=== PATIENT | male | born 1935 | race Caucasian/White ===

== ENCOUNTER 2021-12-27 15:00 | Inpatient (IN) | payer MEDICARE, OTHER ==
[~2021-12-27] VITALS: Ht 177.8 cm; Wt 68.0 kg
[~2021-12-27 15:00] MED LIST: ASPIR 8181 MG PO; CARBIDOPA-LEVO1 EAC7 PO; CEFUROXIME500 MG PO; COMTAN200 MG PO; DIABETA 2.5 MG2.5 MG PO; DONEPEZIL HCL10 MG PO; DONEPEZIL HCL23 MG PO; FEOSOL325 MG PO; FOLBIC TABLET1 EACH PO; GLUCERNA/RESOURC1 EA PO; LIPITOR TAB 2020 MG PO; MACROBID 100 M100 MG PO; METOPROLOL TART25 MG PO; MIDODRINE HCL10 MG PO; NUPLAZID PO; OMNICEF 300 MG300 MG PO; QUETIAPINE FUMA50 MG PO; SENOKOT-S TABL1 EACH PO; SEROQUEL50 MG PO; SYNTHROID25 MCG PO; VALTREX1000 MG PO; VITAMIN B-1000 MCG/M IM; ZOVIRAX 800 MG800 MG PO
[2021-12-27 18:02] LABS: HEMOGLOBIN 10.8 gm/dl (14.0-17.5); RED BLOOD COUNT 3.29 M/UL (4.20-5.50); WHITE BLOOD COUNT 18.6 K/UL (4.5-11.0)
[2021-12-28 06:24] LABS: HEMOGLOBIN 10.1 gm/dl (14.0-17.5); RED BLOOD COUNT 3.08 M/UL (4.20-5.50); WHITE BLOOD COUNT 15.8 K/UL (4.5-11.0)
[2021-12-29 07:19] LABS: HEMOGLOBIN 9.4 gm/dl (14.0-17.5); RED BLOOD COUNT 2.85 M/UL (4.20-5.50)
== END 2021-12-29 15:00 | DRG 177 ==
LOC: ER1 15:00 → MED SURG 4 17:14 → CDU 17:14 → MED SURG 4 18:56
PROVIDERS: Preventive Medicine Occupational Medicine; ADMIT Internal Medicine
PROC: 5A0945A Assistance with Respiratory Ventilation, 24-96 Consecutive Hours, High Flow/Velocity Cannula (ICD-10-PCS; principal; 2021-12-27)
DX: J69.0 Pneumonitis due to inhalation of food and vomit (principal); J96.01 Acute respiratory failure with hypoxia; N17.0 Acute kidney failure with tubular necrosis; E87.2 Acidosis; E03.9 Hypothyroidism, unspecified; J43.9 Emphysema, unspecified; E86.0 Dehydration; G20 Parkinson's disease; N18.30 Chronic kidney disease, stage 3 unspecified; E11.22 Type 2 diabetes mellitus with diabetic chronic kidney disease; Z66 Do not resuscitate; Z20.822 Contact with and (suspected) exposure to COVID-19; Z88.0 Allergy status to penicillin; Z51.5 Encounter for palliative care; Z79.899 Other long term (current) drug therapy; Z87.891 Personal history of nicotine dependence; Z79.4 Long term (current) use of insulin; Z74.01 Bed confinement status
CPT/HCPCS: 0240U; 36600; 71045; 80048; 80053; 82009; 82803; 82962; 83605; 83880; 85025; 85027; 85652; 86140; 94640; 94664; 94760; 96374; 96375; 99285; J0696; J1644; J2185; J2930